=== PATIENT | female | born 1980 | race Asian ===

== ENCOUNTER 2022-10-14 13:07 | Emergency (ER) | payer OTHER | END 2022-10-14 14:55 | disposition home or self-care (01) | LOC: JP.ED 13:07 | DX: S40.022A Contusion of left upper arm, initial encounter (principal); E11.9 Type 2 diabetes mellitus without complications; I10 Essential (primary) hypertension; Z79.4 Long term (current) use of insulin; W00.9XXA Unspecified fall due to ice and snow, initial encounter | CPT/HCPCS: 73060-26-LT; 73060-LT; 99283 ==